=== PATIENT | male | born 1985 | race American Indian/Alaskan Native ===

== ENCOUNTER 2019-02-20 10:03 | Emergency (ER) | payer OTHER ==
[2019-02-20 10:16] VITALS: BP 109/62
[2019-02-20] MEDS ORDERED: ZITHROMAX PO ONE (11:20)
[2019-02-20] MEDS ORDERED: XYLOCAINE 1% MPF 5 mL INFILTRATI ONE (11:20)
[2019-02-20] MEDS ORDERED: ROCEPHIN IM ONE (11:20)
--- NOTE | 2019-02-20 11:20 | Emergency Department Report ---
ED Dysuria HPI - HPI Chief Complaint: Urogenital-Male Stated Complaint: PRIVATE BURNING Time Seen by Provider: 02/20/19 11:14 Duration: 2 Days Severity: None Symptoms: Dysuria: Yes, Frequency: No, Suprapubic Pain: No, Flank Pain: No, Fever: No, Hematuria: No, Abdominal Pain: No, Previous UTI's: No Other History: 33 yo with penile dc and burning. Known exposure to gonnorrhea and chlamydia. no cva tenderness. no fever. no rash or lesions. ED Review of Systems ROS: Stated complaint: PRIVATE BURNING Other details as noted in HPI Comment: All other systems reviewed and negative Constitutional: denies: fever Cardiovascular: denies: dyspnea on exertion Endocrine: denies: excessive sweating Gastrointestinal: denies: abdominal pain Genitourinary: as per HPI, urgency, discharge Musculoskeletal: as per HPI. denies: back pain Skin: as per HPI. denies: rash ED Past Medical Hx - Past Medical History Previous Medical History?: No - Surgical History Past Surgical History?: No - Family History Family history: no significant - Social History Smoking Status: Never Smoker Substance Use Type: None Dysuria Exam - Exam General: Vital signs noted. No distress. Alert and acting appropriately. Exam: Yes Moist Mucous Membranes, No CVA Tenderness, No Abdominal Tenderness, No Rigidity or Guarding ED Course Vital Signs 02/20/19 10:13 Temperature 98.0 F Pulse Rate 85 Respiratory 16 Rate Blood Pressure 109/62 O2 Sat by Pulse 100 Oximetry ED Medical Decision Making - Medical Decision Making gc and ua sent known exposure to GC treat with rocephin and azithro treated due to public health risk education on treatment for partners and safe sex Vital Signs 02/20/19 10:13 Temperature 98.0 F Pulse Rate 85 Respiratory 16 Rate Blood Pressure 109/62 O2 Sat by Pulse 100 Oximetry Critical care attestation.: If time is entered above; I have spent that time in minutes in the direct care of this critically ill patient, excluding procedure time. ED Disposition Clinical Impression: Exposure to STD Disposition: DC-01 TO HOME OR SELFCARE Is pt being admited?: No Does the pt Need Aspirin: No Condition: Stable Instructions: Safe Sex (ED) Referrals: SHANTEL CASTANON MD [Primary Care Provider] - 3-5 Days Time of Disposition: 11:20
[2019-02-20 12:23] LABS: Bilirubin,Urine NEG (Negative); Blood,Urine NEG (Negative); Color,Urine Yellow (Yellow); Mucus,Urine FEW /HPF; Protein,Urine <15 mg/dL mg/dL (Negative); Urobilinogen,Urine < 2.0 mg/dL (<2.0)
== END 2019-02-20 12:20 | disposition home or self-care (01) ==
LOC: ED 10:03
DX: A64 Unspecified sexually transmitted disease (principal)
CPT/HCPCS: 81001; 87591; 96372; 99283; J0696

== ENCOUNTER → 2022-02-25 | Emergency (ER) | payer SELFPAY ==
[2022-02-25 05:35] VITALS: BP 116/69
== END ==
LOC: ED 02:30
DX: H57.12 Ocular pain, left eye (principal); Z53.21 Procedure and treatment not carried out due to patient leaving prior to being seen by health care provider